=== PATIENT | male | born 1990 | race Caucasian/White ===

== ENCOUNTER 2021-12-07 00:45 | Emergency (ER) | payer BC ==
[2021-12-07 04:59] VITALS: BP 132/76; PULSE 78
== END 2021-12-07 02:53 | disposition home or self-care (01) ==
LOC: MW.ED 00:45
DX: M25.512 Pain in left shoulder (principal); Z91.048 Other nonmedicinal substance allergy status; Z91.09 Other allergy status, other than to drugs and biological substances
CPT/HCPCS: 73030-26-LT; 73030-LT; 99282; 99283